=== PATIENT | female | born 1945 | race Caucasian/White ===

== ENCOUNTER → 2017-02-26 | Outpatient (CLI) | payer MEDICARE, OTHER ==
[~2017-02-26] MED LIST: OMNIPAQUE 350 MG/ML, 50 ML BOTTLE ONE
== END | disposition home or self-care (01) ==
LOC: RAD 10:17
PROVIDERS: ATTEND Specialist
DX: I63.511 Cerebral infarction due to unspecified occlusion or stenosis of right middle cerebral artery (principal)
CPT/HCPCS: 0042T; Q9967